=== PATIENT | female | born 1960 | race Native Hawaiian/Other Pacific Islander ===

== ENCOUNTER 2018-06-22 08:13 | Day surgery (SDC) | payer OTHER ==
[~2018-06-22 08:13] MED LIST: DULO30CA OR; HYDR5TAB9 PO; LORTAB 10-325 M1 TAB PO; LOVAZA1 GM OR; XANAX2 MG OR
[2018-06-22 09:18] LABS: PLATELET COUNT 205 K/uL (152-353)
[2018-06-22 09:27] LABS: POTASSIUM 3.7 mmol/L (3.6-5.2)
== END 2018-06-22 12:02 | disposition home or self-care (01) ==
LOC: OR 08:13
PROVIDERS: Student in an Organized Health Care Education/Training Program
PROC: 0H9U0ZZ Drainage of Left Breast, Open Approach (ICD-10-PCS; principal; 2018-06-22)
DX: N61.1 Abscess of the breast and nipple (principal)
CPT/HCPCS: 80053; 85027; 87070; 87205; J1100; J2001; J2250; J2405; J2704; J3010; J3490